=== PATIENT | male | born 1940 | race Caucasian/White ===

== ENCOUNTER 2016-10-22 05:55 | Day surgery (SDC) | payer OTHER ==
--- NOTE | ~2016-10-22 | EGD ---
EGD REPORT [facility] [address] [place]. [place] [address] NAME: BRIAN LAM : 44 STATUS : REG [facility] [place] PAT#: [id number] AGE: 76 ADM/REG DATE : 10/22/16 MR#: [id number] REPORT SERV DATE: 10/22/16 DICTATED BY: JENNIFER SALEH DATE: 10/22/16 REPORT STATUS : Draft [facility]: [facility] DATE: 10/22/16 [facility] Patient Name: Brian Lam. Date of : 1940 Attending MD: JENNIFER SLAEH MD Procedure Date No Time: 10/22/2016 Procedure: Colonoscopy Indications: Hematochezia. Patient Profile: Informed consent was obtained from the patient by me prior to the procedure. Risks, benefits, and alternatives were discussed including the risk of bleeding, perforation, infection, reaction to medicine, missed lesion, and cardiopulmonary complications. Referring MD: DENILSON MURILLO Medicines: Monitored Anesthesia Care Complications: No immediate complications. Procedure: Pre-Anesthesia Assessment: - ASA Grade Assessment: II - A patient with mild systemic disease. After I obtained informed consent, the scope was passed under direct vision. Throughout the procedure, the patient's blood pressure, pulse, and oxygen saturations were monitored continuously. The PCF [id number] was introduced through the anus and advanced to the cecum, identified by appendiceal orifice and ileocecal valve. The colonoscope was slowly withdrawn with careful examination all mucosal surfaces including specific attention around flexures and tip deflection behind folds; retroflexion performed in rectum. The colonoscopy was performed without difficulty. The patient tolerated the procedure well. The quality of the bowel preparation was adequate. The ileocecal valve, appendiceal orifice and rectum were photographed. Findings: Two sessile polyps were found in the distal ascending colon. The polyps were 7 to 10 mm in size. These polyps were removed with a cold snare. Resection and retrieval were complete. A flat polyp was found in the descending colon. The polyp was 10 mm in size. The polyp was removed with a cold snare. Resection and retrieval were complete. Multiple medium-mouthed diverticula were found in the sigmoid colon. External internal hemorrhoids were found, and they were moderate. Impression: - Two 7 to 10 mm polyps in the distal ascending colon. EGD REPORT [address] [address] NAME: BRIAN LAM : 44 STATUS : REG [facility]#: [id number] AGE: 76 ADM/REG DATE : 10/22/16 MR#: [id number] REPORT SERV DATE: 10/22/16 DICTATED BY: JENNIFER SALEH DATE: 10/22/16 REPORT STATUS : Draft TRANSCRIBED BY: [employer] DATE: 10/22/16 Resected and retrieved. - One 10 mm polyp in the descending colon. Resected and retrieved. - Diverticulosis in the sigmoid colon. - External internal hemorrhoids. Recommendation: - Patient has a contact number available for emergencies. The signs and symptoms of potential delayed complications were discussed with the patient. Return to normal activities tomorrow. Written discharge instructions were provided to the patient. - Regular diet. - Await pathology results. - Continue present medications. - Repeat colonoscopy for surveillance based on pathology results. - Patient to call office if any more significant hemorrhoidal bleeding. Procedure Code(s): --- Professional --- 11058, Colonoscopy, flexible, proximal to splenic flexure; with removal of tumor(s), polyp(s), or other lesion(s) by snare technique Diagnosis Code(s): --- Professional --- D12.4, Benign neoplasm of descending colon D12.2, Benign neoplasm of ascending colon K64.4, Residual hemorrhoidal skin tags K64.8, Other hemorrhoids K57.30, Diverticulosis of large intestine without perforation or abscess without bleeding K92.1, Melena CPT copyright 2013 [employer]. All rights reserved. The codes documented in this report are preliminary and upon fabric finisher review may be revised to meet current compliance requirements. JENNIFER SALEH MD 10/22/2016 7:37 AM This report has been signed electronically. Number of Addenda: 0 Note Initiated On: 10/22/2016 7:01 AM Scope Withdrawal Time 0 hours 10 minutes 29 seconds EGD REPORT [place] [id number] [id number] NAME: BRIAN LAM : 44 STATUS : REG [facility] [place] PAT#: [id number] AGE: 76 ADM/REG DATE : 10/22/16 MR#: [id number] REPORT SERV DATE: 10/22/16 DICTATED BY: JENNIFER SALEH DATE: 10/22/16 REPORT STATUS : Draft TRANSCRIBED BY: [employer] DATE: [facility]22[facility] [id number]
[~2016-10-22 05:55] MED LIST: ASA5GR PO; COZ50 PO; MAG-DELAY PO
== END 2016-10-22 23:59 | disposition home health service (06) ==
LOC: DMU 05:55
PROVIDERS: Internal Medicine Gastroenterology
PROC: 0DBM8ZZ Excision of Descending Colon, Via Natural or Artificial Opening Endoscopic (ICD-10-PCS; 2016-10-22)
PROC: 0DBK8ZZ Excision of Ascending Colon, Via Natural or Artificial Opening Endoscopic (ICD-10-PCS; principal; 2016-10-22 07:30)
DX: D12.4 Benign neoplasm of descending colon (principal); D12.2 Benign neoplasm of ascending colon; K64.4 Residual hemorrhoidal skin tags; K64.8 Other hemorrhoids; K57.30 Diverticulosis of large intestine without perforation or abscess without bleeding; M19.90 Unspecified osteoarthritis, unspecified site; I10 Essential (primary) hypertension; Z87.442 Personal history of urinary calculi; F17.210 Nicotine dependence, cigarettes, uncomplicated; Z98.890 Other specified postprocedural states
CPT/HCPCS: 88305